=== PATIENT | female | born 1970 | race Caucasian/White ===

== ENCOUNTER 2017-05-12 05:41 | Day surgery (SDC) | payer OTHER ==
[~2017-05-12] VITALS: Ht 177.8 cm; Wt 59.0 kg
[2017-05-12] MEDS ORDERED: BUPIVACAINE/PF 0.25% ONE (06:47)
[2017-05-12] MEDS ORDERED: EPINEPHRINE 1 MG/ML, 1ML ONE (06:47)
[2017-05-12] MEDS ORDERED: FLUORESCEIN SODIUM 500 MG/5 ML ONE (06:51)
[2017-05-12] MEDS ORDERED: LACTATED RINGERS 1,000 ML IV SCH ×2 (07:11→09:03)
[2017-05-12 07:12] VITALS: BP 118/81
[2017-05-12] MEDS ORDERED: FENTANYL PF 250 MCG/5ML ONE (07:12)
[2017-05-12] MEDS ORDERED: MIDAZOLAM 1 MG/ML, 2ML ONE (07:13)
[2017-05-12] MEDS ORDERED: MAGN400O4 PO (07:23)
[2017-05-12] MEDS ORDERED: ROCURONIUM 10 MG/ML ONE (07:29)
[2017-05-12] MEDS ORDERED: CEFAZOLIN 1,000 MG ONE (07:29)
[2017-05-12] MEDS ORDERED: DEXAMETHASONE 4 MG/ML, 1ML ONE (07:29)
[2017-05-12] MEDS ORDERED: SUCCINYLCHOLINE 20 MG/ML, 10ML ONE (07:29)
[2017-05-12] MEDS ORDERED: ONDANSETRON 2MG/ML, 2ML ONE (07:29)
[2017-05-12] MEDS ORDERED: KETOROLAC 30 MG/1 ML ONE (07:29)
[2017-05-12] MEDS ORDERED: PROPOFOL 10 MG/ML, 20ML ONE (07:29)
[2017-05-12] MEDS ORDERED: LABETALOL 5MG/ML, 20ML IV PRN (08:00)
[2017-05-12] MEDS ORDERED: hydrALAzine 20 MG/ML, 1ML IV PRN (08:00)
[2017-05-12] MEDS ORDERED: HYDROmorphone 1 MG/ML, 1ML IV PRN (08:00)
[2017-05-12] MEDS ORDERED: ALBUTEROL SULFATE 2.5 MG/3 ML NPPB PRN (08:00)
[2017-05-12] MEDS ORDERED: ONDANSETRON 2MG/ML, 2ML IVPush PRN ×2 (08:00→09:30)
[2017-05-12] MEDS ORDERED: OXYcodone 5 MG/5 ML ORAL.SOL UDC PO PRN (08:00)
[2017-05-12] MEDS ORDERED: ACETAMINOPHEN 325 MG TABLET PO PRN (08:00)
[2017-05-12] MEDS ORDERED: MEPERIDINE/PF 25MG/0.5ML IVPush PRN (08:00)
[2017-05-12] MEDS ORDERED: MIDAZOLAM 1 MG/ML, 2ML IV PRN (08:00)
[2017-05-12] MEDS ORDERED: PROMETHAZINE 25 MG/ML, 1ML IV PRN (08:00)
[2017-05-12 09:06] LABS: HCG UR OBC PASS
[2017-05-12] MEDS ORDERED: OXYcodone 5 MG/5 ML ORAL.SOL UDC ONE (09:09)
[2017-05-12] MEDS ORDERED: ACETAMINOPHEN 650 MG/20.3 ML UDC ONE (09:09)
[2017-05-12] MEDS ORDERED: FENTANYL PF 100 MCG/2ML ONE (09:16)
[2017-05-12] MEDS: FENTANYL PF 100 MCG/2ML IV PRN ×2 (09:18→09:30)
[2017-05-12] MEDS ORDERED: MEPERIDINE/PF 25MG/0.5ML ONE (09:27)
[2017-05-12] MEDS ORDERED: LACTATED RINGERS 500 ML IVBOLUS ONE (09:30)
[2017-05-12] MEDS ORDERED: IBUPROFEN 600 MG TABLET PO PRN (09:30)
[2017-05-12] MEDS ORDERED: PROMETHAZINE 25 MG/ML, 1ML IVPush ONE (09:30)
[2017-05-12] MEDS ORDERED: HYDROcodone/APAP 5/325 TABLET PO PRN (09:30)
[2017-05-12] MEDS ORDERED: PROMETHAZINE 12.5 MG SUPP PR ONE (09:30)
[2017-05-12] MEDS ORDERED: PROMETHAZINE 25 MG/ML, 1ML ONE (09:50)
== END 2017-05-12 13:25 ==
LOC: OUT 05:41
PROVIDERS: ATTEND Obstetrics & Gynecology Female Pelvic Medicine and Reconstructive Surgery
DX: N92.0 Excessive and frequent menstruation with regular cycle (principal); N85.2 Hypertrophy of uterus; D25.9 Leiomyoma of uterus, unspecified; D64.9 Anemia, unspecified; G43.909 Migraine, unspecified, not intractable, without status migrainosus; F32.9 Major depressive disorder, single episode, unspecified; F41.9 Anxiety disorder, unspecified
CPT/HCPCS: 36415; 58571; 81025; 85025; 88307; J0171; J0330; J0690; J1100; J1885; J2175; J2250; J2405; J2550; J2704; J3010; J3490; J7120